=== PATIENT | female | born 1965 | race Caucasian/White ===

== ENCOUNTER 2017-05-06 11:21 | Inpatient (IN) | payer MEDICAID ==
[~2017-05-06] VITALS: Ht 154.9 cm; Wt 82.0 kg
[~2017-05-06 11:21] MED LIST: ALBU8.5H5 INH; METF500T4 PO
[2017-05-06] MEDS ORDERED: ASPIRIN 325 MG TABLET PO STA (11:26)
[2017-05-06] MEDS ORDERED: SODIUM CHLORIDE 0.9% 1,000 ML IV SCH (11:26)
[2017-05-06] MEDS ORDERED: MIDAZOLAM 1 MG/ML, 5ML ONE (11:27)
[2017-05-06] MEDS ORDERED: HEPARIN 1,000 UNITS/ML, 10ML ONE (11:27)
[2017-05-06] MEDS ORDERED: TICAGRELOR 90 MG TABLET ONE (11:27)
[2017-05-06] MEDS ORDERED: VERAPAMIL 2.5 MG/ML, 2ML ONE (11:27)
[2017-05-06] MEDS ORDERED: BIVALIRUDIN 250 MG ONE (11:27)
[2017-05-06] MEDS ORDERED: FENTANYL PF 100 MCG/2ML ONE (11:27)
[2017-05-06] MEDS ORDERED: NITROGLYCERIN 5 MG/ML, 10ML ONE (11:27)
[2017-05-06] MEDS ORDERED: LIDOCAINE 2%, 20ML ONE (11:28)
[2017-05-06] MEDS ORDERED: NITROGLYCERIN 0.4 MG BOTTLE (25 TABS) SL PRN (11:30)
[2017-05-06] MEDS ORDERED: FENTANYL PF 100 MCG/2ML IVPush PRN (11:30)
[2017-05-06] MEDS ORDERED: METOPROLOL 1 MG/ML, 5ML IVPush PRN (11:30)
[2017-05-06] MEDS ORDERED: ATORVASTATIN 80 MG TABLET PO ONE (11:30)
[2017-05-06] MEDS ORDERED: SODIUM CHLORIDE FLUSH 10ML SYR IVF PRN (12:00)
[2017-05-06] MEDS ORDERED: MORPHINE SULFATE 4 MG/ML, 1ML ONE (12:18)
[2017-05-06] MEDS: ISOSORBIDE MONONITRATE ER 30 MG TABLET PO SCH (12:45)
[2017-05-06] MEDS: SODIUM CHLORIDE 0.9% 1,000 ML IV SCH ×2 (12:45→20:20)
[2017-05-06 13:05] LABS: BLOOD UREA NITROGEN 21 mg/dL (7-18)
[2017-05-06 13:17] LABS: IS PT STATUS REG ER OR PRE ER? NO
[2017-05-06] MEDS ORDERED: BISACODYL 10 MG SUPP PR PRN (14:30)
[2017-05-06] MEDS ORDERED: POLYETHYLENE GLYCOL 17 GM PACKET PO PRN (14:30)
[2017-05-06] MEDS ORDERED: DOCUSATE 100 MG CAPSULE PO PRN (14:30)
[2017-05-06] MEDS: INSULIN ASPART 100 UNITS/ML, PEN SQ-INSULIN SCH ×2 (17:34→20:34)
[2017-05-06] MEDS: METOPROLOL TARTRATE 25 MG TABLET PO SCH (17:35)
[2017-05-06] MEDS: NICOTINE 14MG/24 HR PATCH.TD24 TD SCH (17:35)
[2017-05-06 19:34] LABS: IS PT STATUS REG ER OR PRE ER? NO
[2017-05-06] MEDS: FAMOTIDINE 20 MG TABLET PO SCH (20:33)
[2017-05-06] MEDS: TICAGRELOR 90 MG TABLET PO SCH (20:34)
[2017-05-07 00:52] LABS: IS PT STATUS REG ER OR PRE ER? NO
[2017-05-07 06:07] LABS: ASPARTATE AMINO TRANSFERASE 46 U/L (15-37); BLOOD UREA NITROGEN 22 mg/dL (7-18)
[2017-05-07] MEDS: METOPROLOL TARTRATE 25 MG TABLET PO SCH ×2 (06:42→18:00)
[2017-05-07] MEDS: INSULIN ASPART 100 UNITS/ML, PEN SQ-INSULIN SCH ×4 (08:11→21:38)
[2017-05-07] MEDS: FAMOTIDINE 20 MG TABLET PO SCH ×2 (08:49→21:29)
[2017-05-07] MEDS: ASPIRIN 81 MG TABLET EC PO SCH (08:49)
[2017-05-07] MEDS: TICAGRELOR 90 MG TABLET PO SCH ×2 (08:49→21:29)
[2017-05-07] MEDS: ISOSORBIDE MONONITRATE ER 30 MG TABLET PO SCH (08:49)
[2017-05-07 09:24] LABS: IS PT STATUS REG ER OR PRE ER? NO
[2017-05-07] MEDS ORDERED: SODIUM CHLORIDE 0.9%, 250ML IVBOLUS ONE (10:30)
[2017-05-07] MEDS: ACETAMINOPHEN 325 MG TABLET PO PRN ×2 (12:47→18:09)
[2017-05-07] MEDS: NICOTINE 14MG/24 HR PATCH.TD24 TD SCH (17:39)
[2017-05-07] MEDS: ATORVASTATIN 80 MG TABLET PO SCH (21:29)
[2017-05-08 05:22] LABS: BLOOD UREA NITROGEN 22 mg/dL (7-18)
[2017-05-08 05:24] LABS: IS PT STATUS REG ER OR PRE ER? NO
[2017-05-08] MEDS: METOPROLOL TARTRATE 25 MG TABLET PO SCH ×2 (06:00→18:51)
[2017-05-08] MEDS: INSULIN ASPART 100 UNITS/ML, PEN SQ-INSULIN SCH ×4 (07:00→21:35)
[2017-05-08] MEDS: FAMOTIDINE 20 MG TABLET PO SCH ×2 (09:29→21:36)
[2017-05-08] MEDS: ASPIRIN 81 MG TABLET EC PO SCH (09:30)
[2017-05-08] MEDS: TICAGRELOR 90 MG TABLET PO SCH ×2 (09:30→21:36)
[2017-05-08] MEDS: ISOSORBIDE MONONITRATE ER 30 MG TABLET PO SCH (09:30)
[2017-05-08 13:39] LABS: IS PT STATUS REG ER OR PRE ER? NO
[2017-05-08 13:40] VITALS: BP 115/71
[2017-05-08 14:00] VITALS: BP 114/62
[2017-05-08] MEDS: INSULIN DETEMIR 100 UNITS/ML, PEN SQ-INSULIN SCH (15:11)
[2017-05-08] MEDS: ACETAMINOPHEN 325 MG TABLET PO PRN (15:23)
[2017-05-08] MEDS: NICOTINE 14MG/24 HR PATCH.TD24 TD SCH (18:52)
[2017-05-08 19:12] VITALS: BP 101/65
[2017-05-08] MEDS: ATORVASTATIN 80 MG TABLET PO SCH (21:36)
[2017-05-09] MEDS: INSULIN DETEMIR 100 UNITS/ML, PEN SQ-INSULIN SCH ×2 (00:53→12:26)
[2017-05-09 02:03] VITALS: BP 109/69
[2017-05-09 05:22] LABS: BLOOD UREA NITROGEN 13 mg/dL (7-18)
[2017-05-09] MEDS: METOPROLOL TARTRATE 25 MG TABLET PO SCH ×2 (05:41→17:29)
[2017-05-09 08:15] VITALS: BP 113/86
[2017-05-09] MEDS: INSULIN ASPART 100 UNITS/ML, PEN SQ-INSULIN SCH ×4 (08:19→20:25)
[2017-05-09] MEDS: ASPIRIN 81 MG TABLET EC PO SCH (08:19)
[2017-05-09] MEDS: FAMOTIDINE 20 MG TABLET PO SCH ×2 (08:19→20:25)
[2017-05-09] MEDS: TICAGRELOR 90 MG TABLET PO SCH ×2 (08:19→20:25)
[2017-05-09] MEDS: ISOSORBIDE MONONITRATE ER 30 MG TABLET PO SCH (08:19)
[2017-05-09] MEDS: ACETAMINOPHEN 325 MG TABLET PO PRN (08:20)
[2017-05-09 15:21] VITALS: BP 100/63
[2017-05-09] MEDS: NICOTINE 14MG/24 HR PATCH.TD24 TD SCH (17:29)
[2017-05-09 19:55] VITALS: BP 106/68
[2017-05-09] MEDS: ATORVASTATIN 80 MG TABLET PO SCH (20:25)
[2017-05-09] MEDS ORDERED: INSULIN DETEMIR 100 UNITS/ML, PEN SQ-INSULIN SCH (21:00)
[2017-05-10] MEDS ORDERED: INSULIN DETEMIR 100 UNITS/ML, PEN SQ-INSULIN SCH ×2 (01:00→09:00)
[2017-05-10 03:55] VITALS: BP 97/66
[2017-05-10] MEDS ORDERED: ASPI-621 PO (07:10)
[2017-05-10] MEDS ORDERED: ATOR80TA75 PO (07:10)
[2017-05-10] MEDS ORDERED: METO25TA35 PO (07:10)
[2017-05-10] MEDS ORDERED: TICA90TA PO (07:10)
[2017-05-10] MEDS ORDERED: NICO1PAT4 TD (07:10)
[2017-05-10] MEDS ORDERED: ISOS30TA8 PO (07:10)
[2017-05-10] MEDS ORDERED: INSU100I28 SQ-INSULIN (07:10)
[2017-05-10 08:05] VITALS: BP 97/63
[2017-05-10] MEDS: INSULIN ASPART 100 UNITS/ML, PEN SQ-INSULIN SCH ×2 (09:07→12:15)
[2017-05-10] MEDS: ISOSORBIDE MONONITRATE ER 30 MG TABLET PO SCH (09:09)
[2017-05-10] MEDS: FAMOTIDINE 20 MG TABLET PO SCH (09:09)
[2017-05-10] MEDS: METOPROLOL TARTRATE 25 MG TABLET PO SCH (09:09)
[2017-05-10] MEDS: TICAGRELOR 90 MG TABLET PO SCH (09:09)
[2017-05-10] MEDS: ASPIRIN 81 MG TABLET EC PO SCH (09:09)
[2017-05-10 12:50] VITALS: BP 106/70
[2017-05-10 13:14] VITALS: BP 107/67
== END 2017-05-10 14:53 | disposition home or self-care (01) | DRG 249 ==
LOC: ED 11:47 → EDIP 11:53 → CCU 12:25 → 5SO 05-08 13:16
PROC: 02703DZ Dilation of Coronary Artery, One Artery with Intraluminal Device, Percutaneous Approach (ICD-10-PCS; principal; 2017-05-06)
PROC: 4A023N7 Measurement of Cardiac Sampling and Pressure, Left Heart, Percutaneous Approach (ICD-10-PCS; 2017-05-06)
PROC: B2111ZZ Fluoroscopy of Multiple Coronary Arteries using Low Osmolar Contrast (ICD-10-PCS; 2017-05-06)
PROC: B2151ZZ Fluoroscopy of Left Heart using Low Osmolar Contrast (ICD-10-PCS; 2017-05-06)
DX: I21.19 ST elevation (STEMI) myocardial infarction involving other coronary artery of inferior wall (principal); E87.1 Hypo-osmolality and hyponatremia; E11.9 Type 2 diabetes mellitus without complications; F17.210 Nicotine dependence, cigarettes, uncomplicated; J45.909 Unspecified asthma, uncomplicated; F15.90 Other stimulant use, unspecified, uncomplicated; D72.829 Elevated white blood cell count, unspecified; E11.40 Type 2 diabetes mellitus with diabetic neuropathy, unspecified; E11.65 Type 2 diabetes mellitus with hyperglycemia; I10 Essential (primary) hypertension; I25.10 Atherosclerotic heart disease of native coronary artery without angina pectoris; E78.5 Hyperlipidemia, unspecified; Z90.49 Acquired absence of other specified parts of digestive tract; Z71.6 Tobacco abuse counseling; Z91.19 Patient's noncompliance with other medical treatment and regimen; Z80.41 Family history of malignant neoplasm of ovary; Z80.0 Family history of malignant neoplasm of digestive organs; Z88.5 Allergy status to narcotic agent; Z88.2 Allergy status to sulfonamides; Z91.14 Patient's other noncompliance with medication regimen; Z79.84 Long term (current) use of oral hypoglycemic drugs; Z79.51 Long term (current) use of inhaled steroids
CPT/HCPCS: 36415; 71010; 80048; 80053; 80061; 82962; 83036; 83735; 84443; 84484; 85025; 85610; 85730; 87081; 93005; 93306; 93458; 99156; C1876; C1894; J0583; J1644; J1815; J2250; J3010; J3490; C1725; C1769; C1887; J7030; J7050; Q9967

== ENCOUNTER 2017-11-04 10:23 | Inpatient (IN) | payer MEDICAID ==
[~2017-11-04] VITALS: Ht 154.9 cm; Wt 72.0 kg
[~2017-11-04 10:23] MED LIST changes: +ASPI-621 PO; +ATOR-2 PO; +INSU100I28 SQ-INSULIN; +ISOS30TA8 PO; +METO25TA35 PO; +NICO-486 TD; +TICA90TA PO
[2017-11-04] MEDS ORDERED: morphine SULFATE 10 MG/ML, 1ML ONE ×2 (10:51→12:16)
[2017-11-04] MEDS ORDERED: ONDANSETRON 2MG/ML, 2ML ONE ×3 (10:52→19:09)
[2017-11-04] MEDS ORDERED: PLEASE ENTER HEIGHT AND WEIGHT MC SCH (11:00)
[2017-11-04] MEDS ORDERED: SODIUM CHLORIDE 0.9% 1,000ML IVBOLUS ONE (11:00)
[2017-11-04] MEDS ORDERED: ONDANSETRON 2MG/ML, 2ML IVPush ONE (11:00)
[2017-11-04] MEDS ORDERED: SODIUM CHLORIDE FLUSH 10ML SYR IVF ONE (11:00)
[2017-11-04] MEDS ORDERED: MORPHINE SULFATE 4 MG/ML, 1ML IVPush PRN (11:00)
[2017-11-04 11:20] LABS: HEMATOCRIT 46.6 % (34.6-47.8); HEMOGLOBIN 15.8 g/dL (11.7-16.4); WHITE BLOOD COUNT 12.7 x10^3/uL (3.4-10)
[2017-11-04 11:30] LABS: ASPARTATE AMINO TRANSFERASE 21 U/L (15-37); BLOOD UREA NITROGEN 15 mg/dL (7-18)
[2017-11-04 11:45] LABS: PATH.CAST-FLAG NOT PRESENT; SPERM-FLAG NOT PRESENT; SRC-FLAG NOT PRESENT; XTAL-FLAG NOT PRESENT; YLC-FLAG NOT PRESENT
[2017-11-04] MEDS ORDERED: OMNIPAQUE 350 MG/ML, 100ML BOTTLE ONE (12:11)
[2017-11-04] MEDS ORDERED: CEFTRIAXONE PMX 1GM/50ML 50 ML IVPB ONE (12:30)
[2017-11-04] MEDS ORDERED: HYDROmorphone 1 MG/ML, 1ML IVPush PRN ×2 (13:00→14:00)
[2017-11-04] MEDS ORDERED: HYDROmorphone 2 MG/ML, 1ML ONE (13:16)
[2017-11-04] MEDS ORDERED: CEFTRIAXONE PMX 1GM/50ML 50 ML ONE (13:17)
[2017-11-04] MEDS ORDERED: SODIUM CHLORIDE 0.9% 1,000 ML IV ONE (13:40)
[2017-11-04] MEDS ORDERED: SODIUM CHLORIDE FLUSH 10ML SYR IVF PRN (14:00)
[2017-11-04] MEDS ORDERED: ONDANSETRON 2MG/ML, 2ML IVPush PRN ×5 (14:00→19:30)
[2017-11-04] MEDS: D5%-LACTATED RINGERS 1,000 ML IV SCH (17:00)
[2017-11-04] MEDS ORDERED: LABETALOL 5MG/ML, 20ML IVPush PRN (17:00)
[2017-11-04] MEDS: INSULIN REGULAR 100 UNITS/ML, 3ML VIAL SQ-INSULIN SCH (17:00)
[2017-11-04] MEDS ORDERED: HYDROmorphone 2 MG/ML, 1ML IVPush PRN (17:00)
[2017-11-04] MEDS ORDERED: FENTANYL PF 100 MCG/2ML ONE ×3 (17:37→20:03)
[2017-11-04] MEDS ORDERED: MIDAZOLAM 1 MG/ML, 2ML ONE ×2 (17:37→18:18)
[2017-11-04] MEDS ORDERED: PROPOFOL 10 MG/ML, 20ML ONE ×2 (17:38→18:18)
[2017-11-04] MEDS ORDERED: SODIUM CHLORIDE 0.9% PF 10ML ONE (17:41)
[2017-11-04] MEDS ORDERED: SUCCINYLCHOLINE 20 MG/ML, 10ML ONE ×2 (17:41→18:18)
[2017-11-04] MEDS ORDERED: ROCURONIUM 10 MG/ML,10ML ONE ×2 (17:41→18:18)
[2017-11-04] MEDS ORDERED: CEFAZOLIN 1,000 MG ONE ×2 (17:41)
[2017-11-04] MEDS ORDERED: CEFOTETAN PMX 2GM/50ML 50 ML ONE (18:17)
[2017-11-04] MEDS ORDERED: CEFOTETAN 2 GM ONE (18:18)
[2017-11-04] MEDS ORDERED: FENTANYL PF 250 MCG/5ML ONE (18:18)
[2017-11-04] MEDS ORDERED: NEOSTIGMINE 1 MG/ML, 10ML ONE ×2 (18:18→18:42)
[2017-11-04] MEDS ORDERED: GLYCOPYRROLATE 0.2MG/1ML, 5ML ONE (18:18)
[2017-11-04] MEDS ORDERED: LABETALOL 5MG/ML, 20ML IV PRN (18:30)
[2017-11-04] MEDS ORDERED: MEPERIDINE/PF 25MG/0.5ML IVPush PRN (18:30)
[2017-11-04] MEDS ORDERED: hydrALAzine 20 MG/ML, 1ML IV PRN (18:30)
[2017-11-04] MEDS ORDERED: OXYcodone 5 MG/5 ML ORAL.SOL UDC PO PRN (18:30)
[2017-11-04] MEDS ORDERED: HYDROmorphone 1 MG/ML, 1ML IV PRN (18:30)
[2017-11-04] MEDS ORDERED: PROMETHAZINE 25 MG/ML, 1ML IV PRN (18:30)
[2017-11-04] MEDS ORDERED: GLYCOPYRROLATE 0.4 MG/2 ML, 2ML ONE (18:42)
[2017-11-04] MEDS ORDERED: DIPHENHYDRAMINE 50 MG/ML, 1ML IV PRN (19:30)
[2017-11-04] MEDS: LABETALOL 5MG/ML, 20ML IVPush SCH (19:30)
[2017-11-04] MEDS ORDERED: ACETAMINOPHEN 650 MG/20.3 ML UDC PO PRN (19:30)
[2017-11-04] MEDS ORDERED: morphine SULFATE 10 MG/ML, 1ML IVPush PRN (19:30)
[2017-11-04] MEDS ORDERED: INSULIN SINGLE DOSE, ER SQ-INSULIN ONE (20:03)
[2017-11-04] MEDS ORDERED: OXYcodone 5 MG/5 ML ORAL.SOL UDC ONE (20:03)
[2017-11-04] MEDS ORDERED: ICN INSULIN (R) 0.5 UNITS/ML IV SQ-INSULIN ONE (20:30)
[2017-11-04] MEDS ORDERED: INSULIN REGULAR 100 UNITS/ML, 3ML VIAL SQ-INSULIN ONE (20:30)
[2017-11-04] MEDS: FENTANYL PF 100 MCG/2ML IV PRN ×3 (20:34→21:23)
[2017-11-04] MEDS ORDERED: KETOROLAC 30 MG/1 ML ONE (20:36)
[2017-11-04] MEDS: KETOROLAC 30 MG/1 ML IV PRN (20:42)
[2017-11-04] MEDS: DIPHENHYDRAMINE 50 MG/ML, 1ML IVPush SCH (21:00)
[2017-11-04 22:38] VITALS: BP 102/70
[2017-11-04] MEDS: POTASSIUM CHLORIDE 20 MEQ in D5%-0.45% NACL 1,000 ML IV SCH (23:12)
[2017-11-05] MEDS: FAMOTIDINE 20 MG/2 ML IVPush SCH ×3 (00:18→21:59)
[2017-11-05] MEDS: INSULIN REGULAR 100 UNITS/ML, 3ML VIAL SQ-INSULIN SCH ×5 (00:52→23:00)
[2017-11-05] MEDS ORDERED: SODIUM CHLORIDE 0.9%, 500ML IVBOLUS ONE ×2 (02:00→05:30)
[2017-11-05 02:32] VITALS: BP 103/67
[2017-11-05] MEDS: LABETALOL 5MG/ML, 20ML IVPush SCH ×3 (03:30→19:30)
[2017-11-05] MEDS: D5%-LACTATED RINGERS 1,000 ML IV SCH ×2 (06:00→11:54)
[2017-11-05 06:22] LABS: HEMATOCRIT 44.5 % (34.6-47.8); HEMOGLOBIN 14.8 g/dL (11.7-16.4); WHITE BLOOD COUNT 9.7 x10^3/uL (3.4-10)
[2017-11-05 06:25] LABS: ASPARTATE AMINO TRANSFERASE 26 U/L (15-37); BLOOD UREA NITROGEN 14 mg/dL (7-18)
[2017-11-05 06:37] LABS: IS PT STATUS REG ER OR PRE ER? NO
[2017-11-05] MEDS: CEFOTETAN PMX 1GM/50ML 50 ML IVPB SCH ×2 (06:46→17:24)
[2017-11-05 07:22] VITALS: BP 109/71
[2017-11-05] MEDS: ENOXAPARIN 40 MG/0.4 ML SQ SCH (08:54)
[2017-11-05] MEDS: POTASSIUM CHLORIDE 20 MEQ in D5%-0.45% NACL 1,000 ML IV SCH ×2 (12:32→22:14)
[2017-11-05 12:49] VITALS: BP 113/73
[2017-11-05 18:54] VITALS: BP_SYST 87; BP_SYST 98; BP_DIAS 53; BP_DIAS 65
[2017-11-05] MEDS: DIPHENHYDRAMINE 50 MG/ML, 1ML IVPush SCH (21:00)
[2017-11-05 21:53] VITALS: BP 91/58
[2017-11-06 02:39] VITALS: BP 93/59
[2017-11-06] MEDS: LABETALOL 5MG/ML, 20ML IVPush SCH ×3 (03:30→20:27)
[2017-11-06] MEDS: INSULIN REGULAR 100 UNITS/ML, 3ML VIAL SQ-INSULIN SCH ×4 (06:05→23:00)
[2017-11-06] MEDS: POTASSIUM CHLORIDE 20 MEQ in D5%-0.45% NACL 1,000 ML IV SCH ×2 (06:34→21:44)
[2017-11-06 07:24] LABS: BLOOD UREA NITROGEN 8 mg/dL (7-18)
[2017-11-06 08:00] VITALS: BP 97/64
[2017-11-06] MEDS: CEFTRIAXONE PMX 2GM/50ML 50 ML IV SCH (08:03)
[2017-11-06] MEDS: ENOXAPARIN 40 MG/0.4 ML SQ SCH (08:03)
[2017-11-06] MEDS: FAMOTIDINE 20 MG/2 ML IVPush SCH ×2 (08:03→20:26)
[2017-11-06] MEDS ORDERED: CIPROFLOXACIN LACTATE 400 MG in DEXTROSE 5% 100 ML IV SCH (09:00)
[2017-11-06] MEDS ORDERED: MAGNESIUM SULFATE PMX 2GM/50ML 50 ML IV ONE (09:00)
[2017-11-06] MEDS: CIPROFLOXACIN/PMX 400MG/200ML 200 ML IV SCH ×2 (10:02→20:26)
[2017-11-06 11:30] VITALS: BP 96/54
[2017-11-06 12:30] LABS: DAU SCREEN DISCLAIMER
[2017-11-06 17:19] VITALS: BP 103/61
[2017-11-06 19:40] VITALS: BP 113/75
[2017-11-06 20:25] VITALS: BP 93/61
[2017-11-06] MEDS: DIPHENHYDRAMINE 50 MG/ML, 1ML IVPush SCH (20:26)
[2017-11-07 02:47] VITALS: BP 97/62
[2017-11-07] MEDS: LABETALOL 5MG/ML, 20ML IVPush SCH ×2 (03:31→11:30)
[2017-11-07] MEDS: INSULIN REGULAR 100 UNITS/ML, 3ML VIAL SQ-INSULIN SCH ×3 (05:05→17:00)
[2017-11-07 05:15] LABS: HEMATOCRIT 42.4 % (34.6-47.8); HEMOGLOBIN 14.4 g/dL (11.7-16.4); WHITE BLOOD COUNT 8.8 x10^3/uL (3.4-10)
[2017-11-07] MEDS: POTASSIUM CHLORIDE 20 MEQ in D5%-0.45% NACL 1,000 ML IV SCH ×3 (05:46→20:43)
[2017-11-07] MEDS: CEFTRIAXONE PMX 2GM/50ML 50 ML IV SCH (06:24)
[2017-11-07 08:26] VITALS: BP 94/61
[2017-11-07] MEDS: CIPROFLOXACIN/PMX 400MG/200ML 200 ML IV SCH (09:24)
[2017-11-07] MEDS: ENOXAPARIN 40 MG/0.4 ML SQ SCH (09:24)
[2017-11-07] MEDS: FAMOTIDINE 20 MG/2 ML IVPush SCH (09:24)
[2017-11-07 12:38] VITALS: BP 98/67
[2017-11-07] MEDS: TICAGRELOR 90 MG TABLET PO SCH ×2 (14:00→20:44)
[2017-11-07 17:28] VITALS: BP 100/64
[2017-11-07] MEDS: METOPROLOL TARTRATE 25 MG TABLET PO SCH (17:28)
[2017-11-07 19:53] VITALS: BP 101/67
[2017-11-07] MEDS: DIPHENHYDRAMINE 50 MG/ML, 1ML IVPush SCH (20:42)
[2017-11-07] MEDS ORDERED: FAMOTIDINE 20 MG TABLET ONE (21:04)
[2017-11-07] MEDS: FAMOTIDINE 20 MG TABLET PO SCH (21:06)
[2017-11-08] MEDS: INSULIN REGULAR 100 UNITS/ML, 3ML VIAL SQ-INSULIN SCH ×5 (01:17→21:10)
[2017-11-08 01:22] VITALS: BP 127/80
[2017-11-08] MEDS: POTASSIUM CHLORIDE 20 MEQ in D5%-0.45% NACL 1,000 ML IV SCH ×2 (05:50→13:55)
[2017-11-08] MEDS: METOPROLOL TARTRATE 25 MG TABLET PO SCH ×2 (06:25→17:46)
[2017-11-08] MEDS: CEFTRIAXONE PMX 2GM/50ML 50 ML IV SCH (06:25)
[2017-11-08 07:14] VITALS: BP 95/62
[2017-11-08] MEDS: KETOROLAC 30 MG/1 ML IV PRN (08:24)
[2017-11-08] MEDS: TICAGRELOR 90 MG TABLET PO SCH ×2 (10:38→21:10)
[2017-11-08] MEDS: ENOXAPARIN 40 MG/0.4 ML SQ SCH (10:38)
[2017-11-08] MEDS: FAMOTIDINE 20 MG TABLET PO SCH ×2 (10:38→21:10)
[2017-11-08] MEDS ORDERED: OXYcodone/APAP 5/325MG TABLET PO PRN (12:00)
[2017-11-08] MEDS: LORazepam 2 MG/ML, 1ML IVPush PRN ×2 (12:46→14:13)
[2017-11-08] MEDS ORDERED: NICOTINE 14MG/24 HR PATCH.TD24 TD SCH (14:00)
[2017-11-08 17:49] VITALS: BP 113/76
[2017-11-08 18:46] VITALS: BP 110/75
[2017-11-08] MEDS ORDERED: HALOPERIDOL 1 MG TABLET PO PRN (20:30)
[2017-11-08] MEDS: DIPHENHYDRAMINE 50 MG/ML, 1ML IVPush SCH (21:08)
[2017-11-09 01:48] VITALS: BP 116/80
[2017-11-09] MEDS: METOPROLOL TARTRATE 25 MG TABLET PO SCH (06:24)
[2017-11-09] MEDS: CEFTRIAXONE PMX 2GM/50ML 50 ML IV SCH (06:24)
[2017-11-09 06:51] VITALS: BP 108/69
[2017-11-09] MEDS: INSULIN REGULAR 100 UNITS/ML, 3ML VIAL SQ-INSULIN SCH (07:50)
[2017-11-09] MEDS: TICAGRELOR 90 MG TABLET PO SCH (07:51)
[2017-11-09] MEDS: FAMOTIDINE 20 MG TABLET PO SCH (07:51)
[2017-11-09] MEDS: ENOXAPARIN 40 MG/0.4 ML SQ SCH (07:51)
[2017-11-09] MEDS ORDERED: INSU100I28 SQ-INSULIN (08:17)
[2017-11-09] MEDS ORDERED: OXYC1TAB7 PO ×2 (08:17→08:20)
[2017-11-09] MEDS ORDERED: METO25TA35 PO (08:17)
[2017-11-09] MEDS ORDERED: ASPI-621 PO (08:17)
[2017-11-09] MEDS ORDERED: TICA90TA PO (08:17)
[2017-11-09] MEDS ORDERED: ATOR-2 PO (08:17)
[2017-11-09] MEDS ORDERED: IBUP-11 PO (08:20)
[2017-11-09 10:10] VITALS: BP 126/80
== END 2017-11-09 10:53 | disposition home or self-care (01) | DRG 353 ==
LOC: ED 12:47 → EDIP 13:40 → 5SO 22:20 → 4NOR 11-08 14:48 → DCLOUNGE 11-09 10:48
PROVIDERS: ADMIT Surgery; ATTEND Surgery
PROC: 0WQF0ZZ Repair Abdominal Wall, Open Approach (ICD-10-PCS; principal; 2017-11-04 18:00)
DX: K43.6 Other and unspecified ventral hernia with obstruction, without gangrene (principal); G92 Toxic encephalopathy; K55.029 Acute infarction of small intestine, extent unspecified; N39.0 Urinary tract infection, site not specified; J44.9 Chronic obstructive pulmonary disease, unspecified; E83.42 Hypomagnesemia; I10 Essential (primary) hypertension; F41.9 Anxiety disorder, unspecified; I25.10 Atherosclerotic heart disease of native coronary artery without angina pectoris; T50.905A Adverse effect of unspecified drugs, medicaments and biological substances, initial encounter; E11.9 Type 2 diabetes mellitus without complications; F17.200 Nicotine dependence, unspecified, uncomplicated; F15.129 Other stimulant abuse with intoxication, unspecified; H66.90 Otitis media, unspecified, unspecified ear; Z98.51 Tubal ligation status; I25.2 Old myocardial infarction; Z91.14 Patient's other noncompliance with medication regimen; Z95.5 Presence of coronary angioplasty implant and graft; Z79.4 Long term (current) use of insulin; Z90.49 Acquired absence of other specified parts of digestive tract
CPT/HCPCS: 36415; 74177; 80048; 80053; 80307; 81001; 82040; 82962; 83690; 83735; 84484; 85025; 87077; 87086; 87186; 87324; 88307; 93005; 96361; 96365; 96375; J0690; J0696; J0744; J1170; J1650; J1815; J1885; J2250; J2270; J2405; J2704; J2710; J3010; J3480; J3490; Q9967; G0479; J0330; J1200; J2060; J3475; J7030; J7040; S0028; S0074

== ENCOUNTER 2017-12-27 02:56 | Emergency (ER) | payer MEDICAID ==
[~2017-12-27] VITALS: Ht 154.9 cm; Wt 70.0 kg
[~2017-12-27 02:56] MED LIST changes: +IBUP-11 PO; +OXYC1TAB7 PO
[2017-12-27] MEDS ORDERED: ONDANSETRON 2MG/ML, 2ML ONE (03:52)
[2017-12-27] MEDS ORDERED: MORPHINE SULFATE 4 MG/ML, 1ML ONE (03:52)
[2017-12-27] MEDS ORDERED: FAMOTIDINE 20 MG/2 ML ONE (03:53)
[2017-12-27 03:55] LABS: BASOPHILS # (AUTO) 0.08 x10^3/uL (0-0.1); BASOPHILS % (AUTO) 1 % (0-1); EOSINOPHILS # (AUTO) 0.04 x10^3/uL (0-0.4); EOSINOPHILS % (AUTO) 0 % (1-7); LYMPHOCYTES # (AUTO) 2.67 x10^3/uL (1-3.4); LYMPHOCYTES % (AUTO) 19 % (22-44); MD NO; MEAN CORPUSCULAR HEMOGLOBIN 30.5 pg (27.0-34.8); MEAN CORPUSCULAR HGB CONC 33.9 g/dL (32.4-35.8); MEAN PLATELET VOLUME 8.9 fL (7.4-10.4); MONOCYTES # (AUTO) 0.45 x10^3/uL (0.2-0.8); MONOCYTES % (AUTO) 3 % (2-9); NEUTROPHILS # (AUTO) 10.88 x10^3/uL (1.8-6.8); NEUTROPHILS % (AUTO) 77 % (42-75); PLATELET COUNT 342 x10^3/uL (130-400); RED BLOOD COUNT 5.88 x10^6/uL (3.82-5.3); RED CELL DISTRIBUTION WIDTH 13.8 % (9.6-15.2)
[2017-12-27] MEDS ORDERED: ONDANSETRON 2MG/ML, 2ML IVPush ONE (04:00)
[2017-12-27] MEDS ORDERED: FAMOTIDINE 20 MG/2 ML IVP ONE (04:00)
[2017-12-27] MEDS ORDERED: MORPHINE SULFATE 4 MG/ML, 1ML IVPush PRN (04:00)
[2017-12-27] MEDS ORDERED: SODIUM CHLORIDE FLUSH 10ML SYR IVF ONE (04:00)
[2017-12-27] MEDS ORDERED: SODIUM CHLORIDE 0.9% 1,000ML IVBOLUS ONE (04:00)
[2017-12-27 04:03] LABS: INTERNATIONAL NORMALIZED RATIO 0.91 (0.93-1.1); PROTHROMBIN TIME 9.5 Seconds (9.6-11.5)
[2017-12-27 04:05] LABS: ALANINE AMINOTRANSFERASE 39 U/L (12-78); ALBUMIN 3.7 g/dL (3.4-5.0); ANION GAP 9 mmol/L (5-15); CALCIUM 9.8 mg/dL (8.5-10.1); CHLORIDE 98 mmol/L (98-107); CREATININE 0.94 mg/dL (0.55-1.02)
[2017-12-27 04:08] LABS: ALKALINE PHOSPHATASE 192 U/L (45-117); BILIRUBIN,TOTAL 0.7 mg/dL (0.2-1.0); TOTAL PROTEIN 8.2 g/dL (6.4-8.2)
[2017-12-27] MEDS ORDERED: OMNIPAQUE 350 MG/ML, 100ML BOTTLE ONE (04:31)
[2017-12-27 04:37] LABS: MICROSCOPIC INDICATED
[2017-12-27 04:39] LABS: CULTURE INDICATED? YES
[2017-12-27 05:02] VITALS: BP 127/70
== END 2017-12-27 05:50 | disposition home or self-care (01) ==
LOC: ED 03:32
DX: R10.33 Periumbilical pain (principal); I10 Essential (primary) hypertension; I25.2 Old myocardial infarction; E11.9 Type 2 diabetes mellitus without complications; J44.9 Chronic obstructive pulmonary disease, unspecified; Z90.49 Acquired absence of other specified parts of digestive tract
CPT/HCPCS: 36415; 74177; 80053; 81001; 83690; 85025; 85610; 85730; 87086; 96361; 96374; 96375; 99285; J2405; J7030; Q9967; S0028

== ENCOUNTER → 2018-10-13 | Outpatient (CLI) | payer MEDICAID ==
[~2018-10-13] MED LIST changes: +METF500T17 PO; -METF500T4 PO; +OMNIPAQUE 350 MG/ML, 100ML BOTTLE ONE
== END | disposition home or self-care (01) ==
LOC: CFH 13:50
PROVIDERS: ATTEND Family Medicine
DX: K76.9 Liver disease, unspecified (principal); D37.6 Neoplasm of uncertain behavior of liver, gallbladder and bile ducts; Z90.49 Acquired absence of other specified parts of digestive tract
CPT/HCPCS: 74160; 82565; Q9967

== ENCOUNTER 2019-12-16 22:21 | Emergency (ER) | payer MEDICAID ==
[~2019-12-16] VITALS: Ht 154.9 cm; Wt 63.4 kg
[~2019-12-16 22:21] MED LIST changes: -ASPI-621 PO; +ASPI81TA45 PO; -OMNIPAQUE 350 MG/ML, 100ML BOTTLE ONE
--- NOTE | 2019-12-16 23:04 | NUR ---
54Y F THAT COMES IN FOR ABCESS ON L LABIA, PT STS PAIN AND SWELLING BEGAN 2 DAYS AGO. DENIES FEVERS CHILLS, N/V/D AND URINARY SYMPTOMS ASSIDE FROM FREQUENCY PT STS THAT IS NORMAL FOR HER HOWEVER JUST STARTED WEARING DEPENDS BECUASE OF INCON WHEN SHE GETS UP. PT CONNECTED TO MONITORING, AUNG MCRAE
--- NOTE | 2019-12-16 23:05 | NUR ---
MD AT BEDSIDE TO ASSESS PT AND DISCUSS POC
[2019-12-16] MEDS ORDERED: LIDOCAINE-MPF 1%, 5ML ONE (23:11)
[2019-12-16 23:18] LABS: CULTURE INDICATED? YES; MICROSCOPIC INDICATED
--- NOTE | 2019-12-16 23:27 | NUR ---
PA AT BEDSIDE FOR I&D.
[2019-12-16] MEDS ORDERED: LIDOCAINE 1%, 2ML INFIL ONE (23:30)
[2019-12-16 23:40] VITALS: BP 109/65
--- NOTE | 2019-12-16 23:48 | NUR ---
Patient given discharge instructions and they have confirmed that they understand the instructions. Patient ambulatory with steady gait.
== END 2019-12-16 23:51 | disposition home or self-care (01) ==
LOC: ED 23:45
DX: N76.4 Abscess of vulva (principal); I10 Essential (primary) hypertension; J44.0 Chronic obstructive pulmonary disease with (acute) lower respiratory infection; I25.2 Old myocardial infarction; I48.91 Unspecified atrial fibrillation; F17.200 Nicotine dependence, unspecified, uncomplicated; Z90.89 Acquired absence of other organs; Z90.49 Acquired absence of other specified parts of digestive tract
CPT/HCPCS: 56405; 81001; 87086; 87147; 99284

== ENCOUNTER 2019-12-19 23:17 | Inpatient (IN) | payer MEDICAID ==
[~2019-12-19] VITALS: Ht 154.9 cm; Wt 68.5 kg
[2019-12-20] MEDS ORDERED: SODIUM CHLORIDE FLUSH 10ML SYR IVF ONE (00:30)
[2019-12-20] MEDS ORDERED: MORPHINE SULFATE 4 MG/ML, 1ML IVPush PRN (00:30)
[2019-12-20] MEDS ORDERED: MORPHINE SULFATE 4 MG/ML, 1ML ONE (00:39)
[2019-12-20 00:57] LABS: BASOPHILS # (AUTO) 0.03 x10^3/uL (0-0.1); BASOPHILS % (AUTO) 0 % (0-1); EOSINOPHILS % (AUTO) 1 % (1-7); LYMPHOCYTES # (AUTO) 1.98 x10^3/uL (1-3.4); LYMPHOCYTES % (AUTO) 23 % (22-44); MD NO; MEAN CORPUSCULAR HEMOGLOBIN 29.7 pg (27.0-34.8); MEAN CORPUSCULAR HGB CONC 33.3 g/dL (32.4-35.8); MEAN CORPUSCULAR VOLUME 89.1 fL (80-100); MEAN PLATELET VOLUME 9.7 fL (7.4-10.4); MONOCYTES # (AUTO) 0.49 x10^3/uL (0.2-0.8); MONOCYTES % (AUTO) 6 % (2-9); NEUTROPHILS # (AUTO) 6.17 x10^3/uL (1.8-6.8); NEUTROPHILS % (AUTO) 70 % (42-75); PLATELET COUNT 462 x10^3/uL (130-400); RED BLOOD COUNT 4.89 x10^6/uL (3.82-5.3); RED CELL DISTRIBUTION WIDTH 12.7 % (9.6-15.2)
--- NOTE | 2019-12-20 00:58 | NUR ---
IV WAS STARTED GIVEN MED ( MORPHINE 4MG IVP) AFTER CHECKED VSS STABLE SOON GIVEN MORPHINE PT'S OXYGEN SATS DROPPED UP TO 88% APPLIED OXYGEN 2 LITERS 100% NOW
[2019-12-20] MEDS ORDERED: METF500T27 PO (01:05)
[2019-12-20 01:11] LABS: ALBUMIN 3.2 g/dL (3.4-5.0); ANION GAP 7 mmol/L (5-15); CALCIUM 9.7 mg/dL (8.5-10.1); CHLORIDE 94 mmol/L (98-107)
[2019-12-20 01:12] LABS: CREATININE 1.87 mg/dL (0.55-1.02)
--- NOTE | 2019-12-20 01:14 | NUR ---
CT PENDING LAB/CREATINE.
--- NOTE | 2019-12-20 01:24 | NUR ---
PT UP AMBULATED TO BATHROOM WITH STABLE GAIT PT WILL BE MOVED TO RM 15
[2019-12-20] MEDS ORDERED: SODIUM CHLORIDE 0.9% 1,000ML IVBOLUS ONE (01:30)
[2019-12-20] MEDS ORDERED: OMNIPAQUE 350 MG/ML, 100ML BOTTLE ONE (01:43)
--- NOTE | 2019-12-20 01:57 | NUR ---
PT CAME BACK FROM CT VSS UPDATED
--- NOTE | 2019-12-20 02:14 | NUR ---
surgical technologist: gen surg, Dr. Clements, paged per Dr. Keys
--- NOTE | 2019-12-20 02:48 | NUR ---
inserted haines 1200cc of urines noted vss updated pt was informed for admitting by dr bajwa pt agreed with poc
--- NOTE | 2019-12-20 02:50 | NUR ---
processing tech: gen surg, Dr. Clements, paged per Dr. Keys
[2019-12-20 03:07] LABS: MICROSCOPIC INDICATED
[2019-12-20 03:08] LABS: CULTURE INDICATED? YES
--- NOTE | 2019-12-20 03:08 | NUR ---
fsbs 531 after one liter bolus was in md was notified
[2019-12-20] MEDS ORDERED: CLINDAMYCIN PMX 600MG/50ML 0 ML ONE (03:23)
[2019-12-20] MEDS ORDERED: VANCOMYCIN PER PHARMACY MC PRN ×2 (03:30→13:00)
[2019-12-20] MEDS ORDERED: CEFTRIAXONE PMX 1GM/50ML 50 ML IV ONE (03:30)
[2019-12-20] MEDS ORDERED: INSULIN REGULAR 100 UNITS/ML, 3ML VIAL IVPush ONE (03:30)
[2019-12-20] MEDS ORDERED: CLINDAMYCIN PMX 300MG/50ML 50 ML IV SCH (03:30)
[2019-12-20] MEDS ORDERED: VANCOMYCIN 1,200 MG in SODIUM CHLORIDE 0.9% 250 ML IV ONE (03:30)
[2019-12-20] MEDS ORDERED: CEFTRIAXONE PMX 1GM/50ML 50 ML ONE (03:35)
[2019-12-20] MEDS ORDERED: INSULIN SINGLE DOSE, ER ONE (03:36)
[2019-12-20] MEDS ORDERED: SODIUM CHLORIDE 0.9% 1,000 ML IV SCH (03:39)
[2019-12-20] MEDS: INSULIN LISPRO 100 UNITS/ML, PEN SQ-INSULIN SCH ×5 (03:52→22:26)
[2019-12-20] MEDS ORDERED: morphine SULFATE 10 MG/ML, 1ML IVPush PRN ×2 (04:00→13:00)
[2019-12-20] MEDS ORDERED: hydrALAzine 20 MG/ML, 1ML IVPush PRN ×2 (04:00→13:00)
[2019-12-20] MEDS ORDERED: ONDANSETRON 2MG/ML, 2ML IVPush PRN ×2 (04:00→13:00)
--- NOTE | 2019-12-20 04:19 | NUR ---
contact norman [phone] ext [phone] for update on room number.
--- NOTE | 2019-12-20 04:54 | NUR ---
blood cultures were drawn iv abx in is infusing pt is resting given report to rn
--- NOTE | 2019-12-20 05:23 | NUR ---
Report received from PURVI Garcia and given to PURVI Spencer on the floor.
[2019-12-20] MEDS: METOPROLOL TARTRATE 25 MG TABLET PO SCH ×2 (06:00→18:00)
[2019-12-20 06:50] VITALS: BP 93/61
[2019-12-20] MEDS ORDERED: DIPHENHYDRAMINE 25 MG CAPSULE PO ONE (08:30)
[2019-12-20] MEDS ORDERED: DIPHENHYDRAMINE 25 MG CAPSULE PO PRN (08:30)
[2019-12-20 08:44] LABS: ESTIMATED AVERAGE GLUCOSE > 355 mg/dL (0-126)
[2019-12-20] MEDS: CLINDAMYCIN PMX 600MG/50ML 50 ML IV SCH ×2 (09:47→18:05)
[2019-12-20] MEDS: INSULIN GLARGINE 100 UNITS/ML, PEN SQ-INSULIN SCH ×2 (13:00→22:26)
[2019-12-20] MEDS ORDERED: BISACODYL 10 MG SUPP PR PRN (13:00)
[2019-12-20] MEDS ORDERED: PROMETHAZINE 25 MG/ML, 1ML IM PRN (13:00)
[2019-12-20] MEDS ORDERED: ENOXAPARIN 40 MG/0.4 ML SQ SCH (13:00)
[2019-12-20] MEDS ORDERED: ACETAMINOPHEN 325 MG TABLET PO PRN (13:00)
[2019-12-20] MEDS ORDERED: ONDANSETRON ODT 4 MG PO PRN (13:00)
[2019-12-20] MEDS ORDERED: POLYETHYLENE GLYCOL 17 GM PACKET PO PRN (13:00)
[2019-12-20] MEDS ORDERED: PHARMACOKINETIC MONITORING MC PRN (13:30)
[2019-12-20 13:38] VITALS: BP 95/64
[2019-12-20 14:09] LABS: FREE T4 (FREE THYROXINE) 1.3 ng/dL (0.76-1.46)
[2019-12-20] MEDS: PIPERACILLIN/TAZO/PMX 3.375GM 50 ML IV SCH ×2 (14:11→20:37)
[2019-12-20] MEDS: ASPIRIN 81 MG TABLET EC PO SCH (14:11)
[2019-12-20] MEDS: SENNA/DOCUSATE TABLET PO SCH (14:11)
[2019-12-20] MEDS: NICOTINE 14MG/24 HR PATCH.TD24 TD SCH (14:12)
[2019-12-20 19:44] VITALS: BP 102/65
[2019-12-20] MEDS: TICAGRELOR 90 MG TABLET PO SCH (20:37)
[2019-12-20] MEDS: ATORVASTATIN 80 MG TABLET PO SCH (20:37)
[2019-12-20] MEDS: SODIUM CHLORIDE 0.9% 1,000 ML IV SCH (20:38)
[2019-12-21 01:17] VITALS: BP 117/75
[2019-12-21] MEDS: CLINDAMYCIN PMX 600MG/50ML 50 ML IV SCH ×2 (02:07→11:38)
[2019-12-21] MEDS: PIPERACILLIN/TAZO/PMX 3.375GM 50 ML IV SCH ×4 (03:55→22:22)
[2019-12-21 06:28] VITALS: BP 118/63
[2019-12-21] MEDS: METOPROLOL TARTRATE 25 MG TABLET PO SCH ×2 (06:34→16:10)
[2019-12-21 07:11] LABS: ALBUMIN 2.2 g/dL (3.4-5.0); ANION GAP 8 mmol/L (5-15); CALCIUM 7.8 mg/dL (8.5-10.1); CHLORIDE 112 mmol/L (98-107)
[2019-12-21 07:13] LABS: BASOPHILS # (AUTO) 0.08 x10^3/uL (0-0.1); BASOPHILS % (AUTO) 1 % (0-1); EOSINOPHILS # (AUTO) 0.17 x10^3/uL (0-0.4); EOSINOPHILS % (AUTO) 2 % (1-7); LYMPHOCYTES # (AUTO) 2.91 x10^3/uL (1-3.4); LYMPHOCYTES % (AUTO) 35 % (22-44); MD NO; MEAN CORPUSCULAR HEMOGLOBIN 29.4 pg (27.0-34.8); MEAN CORPUSCULAR HGB CONC 33.6 g/dL (32.4-35.8); MEAN CORPUSCULAR VOLUME 87.7 fL (80-100); MEAN PLATELET VOLUME 8.7 fL (7.4-10.4); MONOCYTES # (AUTO) 0.54 x10^3/uL (0.2-0.8); MONOCYTES % (AUTO) 7 % (2-9); NEUTROPHILS # (AUTO) 4.65 x10^3/uL (1.8-6.8); NEUTROPHILS % (AUTO) 56 % (42-75); PLATELET COUNT 450 x10^3/uL (130-400); RED BLOOD COUNT 3.98 x10^6/uL (3.82-5.3); RED CELL DISTRIBUTION WIDTH 12.8 % (9.6-15.2)
[2019-12-21 07:15] LABS: ALANINE AMINOTRANSFERASE 28 U/L (12-78); ALKALINE PHOSPHATASE 497 U/L (45-117); BILIRUBIN,TOTAL 0.6 mg/dL (0.2-1.0); CHOL/HDL RATIO 4.4; CHOLESTEROL, TOTAL 174 mg/dL (140-239); CREATININE 1.25 mg/dL (0.55-1.02); HDL CHOL % 23 % (28-40); HDL CHOLESTEROL (DIRECT) 40 mg/dL (40-60); LDL CHOLESTEROL,CALCULATED 90 mg/dL (54-169); LDL/HDL RATIO 2.3 (0.5-3.0); TOTAL PROTEIN 5.9 g/dL (6.4-8.2); TRIGLYCERIDES 221 mg/dL (50-200); VLDL CHOLESTEROL 44 mg/dL (0-25)
[2019-12-21] MEDS: ASPIRIN 81 MG TABLET EC PO SCH (08:13)
[2019-12-21] MEDS: TICAGRELOR 90 MG TABLET PO SCH ×2 (08:13→20:38)
[2019-12-21] MEDS: INSULIN LISPRO 100 UNITS/ML, PEN SQ-INSULIN SCH ×4 (08:14→20:38)
[2019-12-21] MEDS: SENNA/DOCUSATE TABLET PO SCH (08:17)
[2019-12-21] MEDS: SODIUM CHLORIDE 0.9% 1,000 ML IV SCH (13:55)
[2019-12-21] MEDS: ENOXAPARIN 40 MG/0.4 ML SQ SCH (13:56)
[2019-12-21] MEDS: NICOTINE 14MG/24 HR PATCH.TD24 TD SCH (13:56)
[2019-12-21] MEDS: VANCOMYCIN PMX 1GM/200ML 200 ML IVPB SCH (13:56)
[2019-12-21] MEDS ORDERED: ENOXAPARIN 30 MG/0.3 ML SQ SCH (14:00)
[2019-12-21] MEDS ORDERED: MORPHINE SULFATE 4 MG/ML, 1ML IVPush PRN (16:00)
[2019-12-21 16:11] VITALS: BP 108/67
[2019-12-21 19:57] VITALS: BP 139/67
[2019-12-21] MEDS: ATORVASTATIN 80 MG TABLET PO SCH (20:38)
[2019-12-21] MEDS: INSULIN GLARGINE 100 UNITS/ML, PEN SQ-INSULIN SCH (20:39)
[2019-12-21 22:30] VITALS: BP 101/68
[2019-12-21] MEDS ORDERED: NITROGLYCERIN OINT 2%, 1GM TP ONE (23:00)
[2019-12-22 00:36] VITALS: BP 95/67
[2019-12-22 00:38] VITALS: BP 107/63
[2019-12-22] MEDS: PIPERACILLIN/TAZO/PMX 3.375GM 50 ML IV SCH ×4 (04:32→21:50)
[2019-12-22 05:24] LABS: BASOPHILS # (AUTO) 0.06 x10^3/uL (0-0.1); BASOPHILS % (AUTO) 1 % (0-1); EOSINOPHILS # (AUTO) 0.26 x10^3/uL (0-0.4); EOSINOPHILS % (AUTO) 4 % (1-7); LYMPHOCYTES # (AUTO) 2.62 x10^3/uL (1-3.4); LYMPHOCYTES % (AUTO) 40 % (22-44); MD NO; MEAN CORPUSCULAR HEMOGLOBIN 29.6 pg (27.0-34.8); MEAN CORPUSCULAR HGB CONC 33.4 g/dL (32.4-35.8); MEAN CORPUSCULAR VOLUME 88.7 fL (80-100); MEAN PLATELET VOLUME 8.8 fL (7.4-10.4); MONOCYTES # (AUTO) 0.41 x10^3/uL (0.2-0.8); MONOCYTES % (AUTO) 6 % (2-9); NEUTROPHILS # (AUTO) 3.19 x10^3/uL (1.8-6.8); NEUTROPHILS % (AUTO) 49 % (42-75); PLATELET COUNT 455 x10^3/uL (130-400); RED BLOOD COUNT 4.12 x10^6/uL (3.82-5.3); RED CELL DISTRIBUTION WIDTH 13.5 % (9.6-15.2)
[2019-12-22 05:32] LABS: ANION GAP 5 mmol/L (5-15); CHLORIDE 111 mmol/L (98-107)
[2019-12-22 05:38] LABS: CREATININE 1.13 mg/dL (0.55-1.02); TROPONIN I < 0.015 ng/mL (0.000-0.045)
[2019-12-22 05:39] VITALS: BP 104/71
[2019-12-22] MEDS: METOPROLOL TARTRATE 25 MG TABLET PO SCH ×2 (05:45→18:00)
[2019-12-22 07:38] VITALS: BP 104/69
[2019-12-22] MEDS: SENNA/DOCUSATE TABLET PO SCH (09:00)
[2019-12-22] MEDS: TICAGRELOR 90 MG TABLET PO SCH ×2 (09:46→21:49)
[2019-12-22] MEDS: INSULIN LISPRO 100 UNITS/ML, PEN SQ-INSULIN SCH ×4 (09:46→23:05)
[2019-12-22] MEDS: ASPIRIN 81 MG TABLET EC PO SCH (09:46)
[2019-12-22] MEDS: NICOTINE 14MG/24 HR PATCH.TD24 TD SCH (12:36)
[2019-12-22 14:26] VITALS: BP 126/75
[2019-12-22] MEDS: ENOXAPARIN 40 MG/0.4 ML SQ SCH (16:22)
[2019-12-22] MEDS ORDERED: ALUMINUM/MAG/SIMETHICONE 30 ML UDC PO PRN (17:30)
[2019-12-22] MEDS ORDERED: FAMOTIDINE 40 MG TABLET ONE (17:56)
[2019-12-22 20:25] VITALS: BP 114/74
[2019-12-22] MEDS ORDERED: FAMOTIDINE 40 MG TABLET PO SCH (21:00)
[2019-12-22] MEDS: ATORVASTATIN 80 MG TABLET PO SCH (21:49)
[2019-12-22] MEDS: INSULIN GLARGINE 100 UNITS/ML, PEN SQ-INSULIN SCH (23:05)
[2019-12-22] MEDS ORDERED: MAGNESIUM HYDROXIDE 8%, 30ML UDC PO PRN (23:30)
[2019-12-23] MEDS: VANCOMYCIN PMX 1GM/200ML 200 ML IVPB SCH (02:31)
[2019-12-23 02:46] VITALS: BP 109/72
[2019-12-23] MEDS: PIPERACILLIN/TAZO/PMX 3.375GM 50 ML IV SCH ×2 (04:26→09:46)
[2019-12-23 05:30] LABS: ANION GAP 5 mmol/L (5-15); CHLORIDE 108 mmol/L (98-107)
[2019-12-23 05:32] LABS: CREATININE 1.25 mg/dL (0.55-1.02)
[2019-12-23] MEDS: METOPROLOL TARTRATE 25 MG TABLET PO SCH (06:24)
[2019-12-23 07:14] LABS: BASOPHILS # (AUTO) 0.05 x10^3/uL (0-0.1); BASOPHILS % (AUTO) 1 % (0-1); EOSINOPHILS # (AUTO) 0.34 x10^3/uL (0-0.4); EOSINOPHILS % (AUTO) 4 % (1-7); LYMPHOCYTES # (AUTO) 2.52 x10^3/uL (1-3.4); LYMPHOCYTES % (AUTO) 32 % (22-44); MD NO; MEAN CORPUSCULAR HEMOGLOBIN 29.6 pg (27.0-34.8); MEAN CORPUSCULAR HGB CONC 33.4 g/dL (32.4-35.8); MEAN CORPUSCULAR VOLUME 88.7 fL (80-100); MEAN PLATELET VOLUME 8.8 fL (7.4-10.4); MONOCYTES # (AUTO) 0.47 x10^3/uL (0.2-0.8); MONOCYTES % (AUTO) 6 % (2-9); NEUTROPHILS # (AUTO) 4.55 x10^3/uL (1.8-6.8); NEUTROPHILS % (AUTO) 57 % (42-75); PLATELET COUNT 483 x10^3/uL (130-400); RED BLOOD COUNT 4.32 x10^6/uL (3.82-5.3); RED CELL DISTRIBUTION WIDTH 13.2 % (9.6-15.2)
[2019-12-23] MEDS: SENNA/DOCUSATE TABLET PO SCH (07:30)
[2019-12-23] MEDS: TICAGRELOR 90 MG TABLET PO SCH (07:52)
[2019-12-23] MEDS: ASPIRIN 81 MG TABLET EC PO SCH (07:53)
[2019-12-23] MEDS: INSULIN LISPRO 100 UNITS/ML, PEN SQ-INSULIN SCH ×3 (07:53→17:13)
[2019-12-23 07:59] VITALS: BP 133/60
[2019-12-23] MEDS ORDERED: INSU100I13 SQ-INSULIN (11:17)
[2019-12-23] MEDS ORDERED: AMOX1TAB64 PO (11:17)
[2019-12-23] MEDS ORDERED: INSU100I11 SQ-INSULIN (11:17)
[2019-12-23 17:06] VITALS: BP 113/71
[2019-12-23] MEDS ORDERED: FAMOTIDINE 20 MG TABLET PO SCH (21:00)
== END 2019-12-23 17:50 | disposition home or self-care (01) | DRG 758 ==
LOC: ED 12-20 03:07 → EDIP 12-20 03:26 → 4NE 12-20 06:33
PROVIDERS: ADMIT Family Medicine; ATTEND Internal Medicine
PROC: 0T9B70Z Drainage of Bladder with Drainage Device, Via Natural or Artificial Opening (ICD-10-PCS; principal; 2019-12-20)
DX: N76.4 Abscess of vulva (principal); E87.1 Hypo-osmolality and hyponatremia; F15.20 Other stimulant dependence, uncomplicated; K61.0 Anal abscess; N13.6 Pyonephrosis; N17.9 Acute kidney failure, unspecified; L03.315 Cellulitis of perineum; L03.317 Cellulitis of buttock; B95.5 Unspecified streptococcus as the cause of diseases classified elsewhere; D25.9 Leiomyoma of uterus, unspecified; E11.65 Type 2 diabetes mellitus with hyperglycemia; E78.5 Hyperlipidemia, unspecified; F17.210 Nicotine dependence, cigarettes, uncomplicated; I10 Essential (primary) hypertension; I25.10 Atherosclerotic heart disease of native coronary artery without angina pectoris; J44.9 Chronic obstructive pulmonary disease, unspecified; N76.2 Acute vulvitis; R33.8 Other retention of urine; I25.2 Old myocardial infarction; Z79.4 Long term (current) use of insulin; Z87.440 Personal history of urinary (tract) infections; Z91.14 Patient's other noncompliance with medication regimen; Z95.5 Presence of coronary angioplasty implant and graft; Z98.51 Tubal ligation status; Z88.5 Allergy status to narcotic agent; Z88.8 Allergy status to other drugs, medicaments and biological substances; Z88.2 Allergy status to sulfonamides
CPT/HCPCS: 36415; 74177; 76770; 80048; 80053; 80061; 81001; 82040; 82947; 82962; 83036; 83735; 84439; 84443; 84484; 85025; 87040; 87086; 87147; 93005; 96361; 96374; 96375; G0378; J0696; J1650; J1815; J2405; J2543; J3370; Q0162; Q9967; J2270; J7030; J7050; Q0163

== ENCOUNTER 2021-01-28 22:01 | Emergency (ER) | payer MEDICAID ==
[~2021-01-28] VITALS: Ht 154.9 cm; Wt 67.3 kg
[~2021-01-28 22:01] MED LIST changes: +AMOX1TAB64 PO; +INSU100I11 SQ-INSULIN; +INSU100I13 SQ-INSULIN; +METF500T27 PO
[2021-01-28] MEDS ORDERED: HYDROcodone/APAP 5/325 TABLET ONE (22:29)
[2021-01-28] MEDS ORDERED: HYDROcodone/APAP 5/325 TABLET PO ONE (22:30)
--- NOTE | 2021-01-28 22:44 | NUR ---
pt back from imaging no signs or symptoms of acute distress noted respirations even and unlabored, medicated as ordered for 8/10 left rib and hip pain. pt with call light in hand and bed rails up bilaterally, family member at bedside. pt verbalizes understanding and agreement with plan of care.
--- NOTE | 2021-01-28 23:09 | NUR ---
pt up to ambulate to bathroom with rn as unilateral assist, noted to use r leg to get left out of bed, walkjed with gait that favors left, went to toilet and escorted safely back to bed by this rn. provider at bedside to assess, state that pt will have cat scan of hip. pt aware and agreeable with plan of care, states that pain is down to 5/10. transporter at bedside to take pt to imaging, no signs or symptoms of acute dsitress noted respirations even and unlabored
[2021-01-28 23:20] VITALS: BP 144/64
== END 2021-01-28 23:54 | disposition home or self-care (01) ==
LOC: ED 23:30
DX: S20.212A Contusion of left front wall of thorax, initial encounter (principal); S70.02XA Contusion of left hip, initial encounter; R07.89 Other chest pain; J44.9 Chronic obstructive pulmonary disease, unspecified; I25.2 Old myocardial infarction; E11.9 Type 2 diabetes mellitus without complications; I10 Essential (primary) hypertension; Z90.89 Acquired absence of other organs; Z90.49 Acquired absence of other specified parts of digestive tract; F17.210 Nicotine dependence, cigarettes, uncomplicated; W01.0XXA Fall on same level from slipping, tripping and stumbling without subsequent striking against object, initial encounter; Y93.89 Activity, other specified; Y92.009 Unspecified place in unspecified non-institutional (private) residence as the place of occurrence of the external cause; Y99.8 Other external cause status
CPT/HCPCS: 71046; 72192; 99284

== ENCOUNTER 2021-05-14 19:58 | Emergency (ER) | payer MEDICAID ==
[~2021-05-14] VITALS: Ht 154.9 cm; Wt 67.8 kg
--- NOTE | 2021-05-14 20:28 | NUR ---
PT C/O OF ABRASION ON TOP RIGHT PART OF HEAD SINCE 5 DAYS AGO PT STATES SHE HAD A SCAB ON HER HEAD THAT SHE MIGHT HAVE PICKED. REPORTS SINCE PICKING THE SCAB SHE HAS HAD HEADACHES, NAUSEA, AND PAIN THROUGHOUT WHOLE RIGHT SIDE OF HEAD THAT FEELS LIKE SHES BEING STABBED BY A KNIFE. ATTACHED TO MONITORS. THOR. JASONN. PLAYING ON IPAD IN ROOM. BED IN LOW POSITION, RAILS ENGAGED. CALL LIGHT WITHIN REACH. [facility]
[2021-05-14] MEDS ORDERED: HYDROcodone/APAP 5/325 TABLET ONE (21:13)
--- NOTE | 2021-05-14 21:27 | NUR ---
PT LEAVING ROOM TO IMAGING.
[2021-05-14] MEDS ORDERED: HYDROcodone/APAP 5/325 TABLET PO ONE (21:30)
[2021-05-14] MEDS ORDERED: BUPIVACAINE 0.25% ONE (21:59)
[2021-05-14 23:13] VITALS: BP 164/87
--- NOTE | 2021-05-14 23:15 | NUR ---
Viet given discharge instructions and they have confirmed that they understand the instructions. Patient ambulatory with steady gait. Pt states they are getting taxi ride home for safe dc. NAD, all questions answered appropriately, denies additional needs at this time. No personal belongings left in room after discharge. pt given special dc packet of occipital neuralgia info.
== END 2021-05-14 23:19 | disposition home or self-care (01) ==
LOC: ED 20:30
DX: M54.81 Occipital neuralgia (principal); I10 Essential (primary) hypertension; E11.9 Type 2 diabetes mellitus without complications; E78.5 Hyperlipidemia, unspecified; J44.9 Chronic obstructive pulmonary disease, unspecified; F17.200 Nicotine dependence, unspecified, uncomplicated; Z88.2 Allergy status to sulfonamides; Z88.5 Allergy status to narcotic agent
CPT/HCPCS: 64405; 70450; 99285

== ENCOUNTER 2021-05-18 22:25 | Emergency (ER) | payer MEDICAID ==
[~2021-05-18] VITALS: Ht 162.6 cm; Wt 75.0 kg
--- NOTE | 2021-05-18 22:28 | NUR ---
INITIAL PT CONTACT. PT BIBA C/O HEADACHE. PT RECENTLY SEEN HERE, DX WITH OCCIPITAL NEURALGIA, APPOINTMENT WITH NEUROLOGY SCHEDULED IN TWO DAYS. EMS ADMIN 600 IBUPROFEN, 1000 TYLENOL. PT TEARFUL AND ANXIOUS IN ROOM. PT SITTING UPRIGHT ON GUCHIDI VSNicho. PT PLACED ON CONTINUOUS MONITORING, CALL LIGHT IN REACH AND FRIEND AT BEDSIDE. ERP AT BEDSIDE.
[2021-05-18] MEDS ORDERED: OXYcodone/APAP 10/325MG TABLET ONE (22:39)
[2021-05-18] MEDS ORDERED: OXYcodone/APAP 10/325MG TABLET PO ONE (23:00)
[2021-05-18 23:22] LABS: BASOPHILS % (AUTO) 1 % (0-1); EOSINOPHILS % (AUTO) 1 % (1-7); LYMPHOCYTES % (AUTO) 16 % (22-44); MEAN CORPUSCULAR HEMOGLOBIN 30.7 pg (27.0-34.8); MEAN CORPUSCULAR HGB CONC 34.5 g/dL (32.4-35.8); MEAN PLATELET VOLUME 8.9 fL (7.4-10.4); MONOCYTES % (AUTO) 5 % (2-9); NEUTROPHILS % (AUTO) 77 % (42-75); PLATELET COUNT 278 x10^3/uL (130-400); RED BLOOD COUNT 4.95 x10^6/uL (3.82-5.3); RED CELL DISTRIBUTION WIDTH 13.1 % (9.6-15.2)
[2021-05-18 23:31] LABS: ALBUMIN 2.7 g/dL (3.4-5.0); ANION GAP 7 mmol/L (5-15); CALCIUM 8.7 mg/dL (8.5-10.1); CHLORIDE 101 mmol/L (98-107); CREATININE 1.26 mg/dL (0.55-1.02)
[2021-05-18] MEDS ORDERED: CLINDAMYCIN 300 MG CAPSULE ONE (23:55)
[2021-05-18] MEDS ORDERED: INSULIN LISPRO 100 UNITS/ML, PEN ONE (23:56)
[2021-05-19] MEDS ORDERED: CLINDAMYCIN 300 MG CAPSULE PO ONE
[2021-05-19] MEDS ORDERED: INSULIN REGULAR 100 UNITS/ML, 3ML VIAL SQ-INSULIN ONE
--- NOTE | 2021-05-19 00:02 | NUR ---
Patient given discharge instructions and they have confirmed that they understand the instructions. Patient ambulatory with steady gait.
[2021-05-19 00:03] VITALS: BP 144/82
== END 2021-05-19 00:11 | disposition home or self-care (01) ==
LOC: ED 22:30
DX: L03.811 Cellulitis of head [any part, except face] (principal); E10.65 Type 1 diabetes mellitus with hyperglycemia; Z72.9 Problem related to lifestyle, unspecified
CPT/HCPCS: 36415; 80048; 82040; 85025; 99283; J1815

== ENCOUNTER 2021-05-31 21:41 | Emergency (ER) | payer MEDICAID ==
[~2021-05-31] VITALS: Ht 154.9 cm; Wt 67.4 kg
[2021-05-31 21:46] VITALS: BP 142/90
[2021-05-31] MEDS ORDERED: LIDOCAINE 1%, 10ML INFIL ONE (22:30)
[2021-05-31] MEDS ORDERED: LIDOCAINE-MPF 1%, 5ML ONE (22:31)
== END 2021-05-31 23:52 | disposition home or self-care (01) ==
LOC: ED 22:15
DX: L72.3 Sebaceous cyst (principal); F17.210 Nicotine dependence, cigarettes, uncomplicated; I10 Essential (primary) hypertension; E78.5 Hyperlipidemia, unspecified; I25.2 Old myocardial infarction; E11.65 Type 2 diabetes mellitus with hyperglycemia; Z90.49 Acquired absence of other specified parts of digestive tract; Z90.89 Acquired absence of other organs
CPT/HCPCS: 10060; 99282; 99406